=== PATIENT | female | born 1970 | race Caucasian/White ===

== ENCOUNTER → 2020-03-06 17:11 | Outpatient (CLI) | payer OTHER, SELFPAY ==
--- NOTE | ~2020-03-06 | MM_ITS ---
EXAMINATION: MM screening [facility] BI w constance HISTORY: Screening mammogram TECHNIQUE: Craniocaudal and mediolateral oblique 3-D tomosynthesis images were obtained and synthetic 2-D images were generated. CAD analysis was submitted and interpreted. COMPARISON: 02/06/2019, 12/27/2017, 12/18/2015 BREAST PARENCHYMAL COMPOSITION: There are scattered areas of fibroglandular density. FINDINGS: Scattered benign-appearing calcifications are present. There is no evidence of suspicious m ass, calcification, or architectural distortion to suggest malignancy in either breast. There has bee n no suspicious interval change. IMPRESSION: 1. No mammographic evidence of malignancy. 2. Recommend routine screening mammography in one year. BI-RADS Category 2: Benign finding(s). Reviewed, dictated and finalized at location A. S CENTER MANAGER
== END ==
PROVIDERS: PCP Internal Medicine; Visit Provider Nurse Practitioner
DX: Z12.31 Encounter for screening mammogram for malignant neoplasm of breast (principal)
CPT/HCPCS: 77063; 77067

== ENCOUNTER → 2020-03-24 13:33 | Outpatient (CLI) | payer OTHER, SELFPAY ==
--- NOTE | ~2020-03-24 | MR_ITS ---
EXAMINATION: MR cervical spine wo con DATE: 03/24/2020 14:47 INDICATION: Neck pain. TECHNIQUE: Magnetic resonance imaging (MRI) of the cervical spine was performed without intravenous c ontrast. Sequences included sagittal T2-weighted FSE, sagittal STIR FSE, sagittal T1-weighted FSE, ax ial MERGE, and axial T2-weighted FSE. COMPARISON: None FINDINGS: There is 2 mm retrolisthesis of C5 on C6. Vertebral body heights are normal. There is mildl y decreased disc height at C4-C5 and moderately decreased disc height at C5-C6. The spinal cord signa l intensity is normal. The following disc levels are specifically discussed: C2-C3: The disc does not extend beyond the endplate margin. There is no uncovertebral joint osteoarth ritis. There is severe bilateral facet joint osteoarthritis. There is no neural foraminal stenosis. T here is no central canal stenosis. C3-C4: There is a central protrusion. There is no uncovertebral joint osteoarthritis. There is severe bilateral facet joint osteoarthritis. There is mild left neural foraminal stenosis. There is no cent ral canal stenosis. C4-C5: There is a central protrusion. There is no uncovertebral joint osteoarthritis. There is mild l eft facet joint osteoarthritis. There is no neural foraminal stenosis. There is mild central canal st enosis. C5-C6: The disc is bulging. There is severe bilateral uncovertebral joint osteoarthritis. There is no facet joint osteoarthritis. There is mild bilateral neural foraminal stenosis. There is mild central canal stenosis with ventral indentation of the spinal cord. C6-C7: There is a central protrusion. There is no uncovertebral joint osteoarthritis. There is modera te bilateral facet joint osteoarthritis. There is no neural foraminal stenosis. There is no central c anal stenosis. C7-T1: The disc does not extend beyond the endplate margin. There is no uncovertebral joint osteoarth ritis. There is severe bilateral facet joint osteoarthritis. There is mild bilateral neural foraminal stenosis. There is no central canal stenosis. IMPRESSION: 1. Moderate cervical spondylosis. Reviewed, dictated and finalized at location A. NSTITCH SEWING MACHINE OPERATOR
== END ==
PROVIDERS: PCP Internal Medicine; Visit Provider Internal Medicine
DX: M47.892 Other spondylosis, cervical region (principal)
CPT/HCPCS: 72141

== ENCOUNTER → 2021-02-26 10:40 | Outpatient (CLI) | payer OTHER, SELFPAY ==
--- NOTE | ~2021-02-26 | US_ITS ---
EXAMINATION: US transvaginal EXAM DATE: 02/26/2021 11:04 INDICATION: Pelvic bloating. TECHNIQUE: Pelvic transvaginal sonogram was performed. There are multiple grayscale and Doppler imag es available for interpretation. There is no prior study for comparison. FINDINGS: Uterus measures 6.8 x 4.1 x 4.6 cm, and is morphologically normal. Endometrial stripe luis armando sures 3 mm, within normal limits. There is no free pelvic fluid. Right adnexa: The ovary measures 1.3 x 1.3 x 1.3 cm and is morphologically normal. Ovarian vascular f low confirmed. Left adnexa: The ovary measures 2.1 x 1.8 x 1.7 cm and is morphologically normal. Ovarian vascular fl ow confirmed. IMPRESSION: Unremarkable pelvic ultrasound exam. Reviewed, dictated and finalized at location A.
== END ==
PROVIDERS: Visit Provider Nurse Practitioner
DX: R14.0 Abdominal distension (gaseous) (principal)
CPT/HCPCS: 76830

== ENCOUNTER → 2021-03-12 12:18 | Outpatient (CLI) | payer OTHER, SELFPAY ==
--- NOTE | ~2021-03-12 | MM_ITS ---
EXAMINATION: MM screening [facility] BI w constance HISTORY: Screening mammogram TECHNIQUE: Craniocaudal and mediolateral oblique 3-D tomosynthesis images were obtained and synthetic 2-D images were generated. CAD analysis was submitted and interpreted. COMPARISON: 03/06/2020, 02/06/2019 BREAST PARENCHYMAL COMPOSITION: There are scattered areas of fibroglandular density. FINDINGS: There is no evidence of suspicious mass, calcification, or architectural distortion to sugg est malignancy in either breast. There has been no suspicious interval change. IMPRESSION: 1. No mammographic evidence of malignancy. 2. Recommend routine screening mammography in one year. BI-RADS Category 1: Negative Reviewed, dictated and finalized at location A. MANAGER/ESTHETICIAN
== END ==
PROVIDERS: PCP Internal Medicine; Visit Provider Nurse Practitioner
DX: Z12.31 Encounter for screening mammogram for malignant neoplasm of breast (principal)
CPT/HCPCS: 77063; 77067

== ENCOUNTER → 2021-04-16 07:40 | Outpatient (CLI) | payer OTHER, SELFPAY ==
--- NOTE | ~2021-04-16 | MR_ITS ---
EXAMINATION: MR shoulder RT wo con DATE: 04/16/2021 09:03 INDICATION: Right shoulder pain TECHNIQUE: Magnetic resonance imaging (MRI) of the right shoulder was performed without intravenous c ontrast. Sequences included axial PD-weighted FS FSE, coronal oblique PD-weighted FS FSE, coronal obl ique T2-weighted FS FSE, sagittal PD-weighted FS FSE, and sagittal T1-weighted SE. COMPARISON: None. FINDINGS: Coracoacromial arch: The acromion undersurface is curved in morphology (type II). The coracoacromial ligament is normal. A cromioclavicular joint is normal. Rotator cuff: Mild supraspinatus tendinopathy without discrete tear. The infraspinatus, teres minor and subscapular is tendons are normal. Normal rotator cuff muscle bulk and signal. Biceps tendon, glenoid labrum and glenohumeral cartilage: Long head of the biceps tendon is normal. Glenoid labrum is normal. Glenohumeral cartilage is normal. Fluid: Small amount of fluid in the long head biceps tendon sheath which is disproportionate to the physiolo gic amount fluid in the glenohumeral joint space consistent with mild bicipital tenosynovitis.No loos e osteochondral bodies. No abnormal fluid signal at the subacromial/subdeltoid bursa to suggest bursi tis. Bones: Normal marrow signal with no edema, fracture or abnormal marrow replacing process. IMPRESSION: 1. Mild supraspinatus tendinopathy without discrete tear. 2. Mild bicipital tenosynovitis. Reviewed, dictated and finalized at location . D AGENT
--- NOTE | ~2021-04-16 | MR_ITS ---
EXAMINATION: MR lumbar spine wo con DATE: 04/16/2021 09:08 INDICATION: Spinal stenosis TECHNIQUE: Magnetic resonance imaging (MRI) of the lumbar spine was performed without intravenous con trast. Sequences included sagittal T2-weighted FSE, sagittal T2-weighted FS FSE, sagittal T1-weighted FSE, and axial T2-weighted FSE. COMPARISON: CT dated 06/18/2015 FINDINGS: Chronic bilateral L5 pars interarticularis defects with 6 mm anterolisthesis L5 on S1. 3 mm retrolist hesis L4 on L5. Vertebral body heights are normal. Normal marrow signal. Severe disc height loss at L5-S1. Mild disc height loss at L1-L2. Disc desiccation without significant disc height loss at L4-L5 . The conus medullaris terminates at L1. There is normal signal in the caudal spinal cord. Paraverteb ral soft tissues are unremarkable. The following disc levels are specifically discussed: T12-L1: The disc does not extend beyond the endplate margin. There is mild bilateral facet joint oste oarthritis. There is no neural foraminal stenosis. There is no central canal stenosis. L1-L2: Disc is bulging. There is mild right and minimal left facet joint osteoarthritis. There is mil d left neural foraminal stenosis. There is mild central canal stenosis. L2-L3: The disc does not extend beyond the endplate margin. There is mild right and minimal left face t joint osteoarthritis. There is no neural foraminal stenosis. There is no central canal stenosis. L3-L4: Disc is minimally bulging. There is mild left and minimal right facet joint osteoarthritis. Th ere is no neural foraminal stenosis. There is no central canal stenosis. L4-L5: Disc is mildly bulging with annular fissure and small central disc extrusion with disc materia l extending 3 mm caudal to the level of the superior endplate of L5. There is mild left and moderate right facet joint osteoarthritis. There is mild bilateral neural foraminal stenosis. There is no cent ral canal stenosis. L5-S1: Disc is bulging. Bilateral L5 pars interarticularis defects. There is mild bilateral facet sue nt osteoarthritis. There is mild to moderate bilateral neural foraminal stenosis. There is no central canal stenosis. IMPRESSION: 1. Severe lumbosacral spondylosis with chronic bilateral L5 pars intra-articular is defects and 6 mm anterolisthesis on S1. 2. Minimal to mild spondylosis in the more cephalad lumbar spine. Reviewed, dictated and finalized at location H. OW WARE MAKER IMPRESSION: 1. Severe lumbosacral spondylosis with chronic bilateral L5 pars intra-articula r is defects and 6 mm anterolisthesis on S1. 2. Minimal to mild spondylosis in the more cephalad lumbar spine.
== END ==
PROVIDERS: PCP Internal Medicine; Visit Provider Physician Assistant Medical
DX: M48.00 Spinal stenosis, site unspecified (principal); M75.21 Bicipital tendinitis, right shoulder; M47.896 Other spondylosis, lumbar region
CPT/HCPCS: 72148; 73221

== ENCOUNTER → 2022-03-16 16:35 | Outpatient (CLI) | payer OTHER, SELFPAY ==
--- NOTE | ~2022-03-16 | MM_ITS ---
EXAMINATION: MM screening [facility] BI w constance HISTORY: Screening mammogram TECHNIQUE: Craniocaudal and mediolateral oblique 3-D tomosynthesis images were obtained and synthetic 2-D images were generated. CAD analysis was submitted and interpreted. COMPARISON: 03/12/2021, 03/06/2020, 02/06/2019 bilateral screening mammogram examinations BREAST PARENCHYMAL COMPOSITION: There are scattered areas of fibroglandular density. FINDINGS: There are 2 biopsy markers on the right; history of prior benign breast biopsies. There is associated mild stable fibroglandular asymmetry. There is no evidence of suspicious mass, calcificati on, or architectural distortion to suggest malignancy in either breast. There has been no suspicious interval change. IMPRESSION: 1. No mammographic evidence of malignancy. 2. Recommend routine screening mammography in one year. BI-RADS Category 2: Benign finding(s)... Reviewed, dictated and finalized at location A. ES 7 8 TUTOR
== END ==
PROVIDERS: PCP Physician Assistant Medical; Visit Provider Nurse Practitioner
DX: Z12.31 Encounter for screening mammogram for malignant neoplasm of breast (principal)
CPT/HCPCS: 77063; 77067

== ENCOUNTER 2022-12-22 12:29 | Outpatient (CLI) | payer OTHER, SELFPAY ==
--- NOTE | 2022-12-22 12:38 | ECG_ITS ---
Measurements Intervals [place] Rate: 61 P: -6 KS: 156 QRS: 3 QRSD: 80 T: 17 QT: 377 QTc: 382 Interpretive Statements SINUS RHYTHM ANTEROSEPTAL MYOCARDIAL INFARCTION [40+ ms Q WAVE IN V1-V4], PROBABLY OLD NONSPECIFIC T-WAVE ABNORMALITY ABNORMAL ECG NO PREVIOUS ECG AVAILABLE FOR COMPARISON Electronically Signed On 12-22-2022 14:02:09 CDT by Edgardo Wick M.D.
== END 2022-12-22 12:30 | disposition home or self-care (01) ==
LOC: ANHSURGERY 12:33
PROVIDERS: PCP Physician Assistant Medical; Visit Provider Surgery Plastic and Reconstructive Surgery
DX: I10 Essential (primary) hypertension (principal); Z01.818 Encounter for other preprocedural examination; Z41.1 Encounter for cosmetic surgery; R94.31 Abnormal electrocardiogram [ECG] [EKG]
CPT/HCPCS: 93005

== ENCOUNTER 2022-12-30 02:26 | Day surgery (SDC) | payer OTHER, SELFPAY ==
[2022-12-21 14:54] VITALS: BMI 33.2
--- NOTE | 2022-12-21 15:02 | PC.NURSE ---
Report to the Outpatient Waiting Room, entrance under the green pavilion located off [facility], at time 6:00 on date 12/30/22. Planned Procedure Time: 7:30. Time changes happen often and if your time is changed the preop area will call you the afternoon before. - You and your visitor will be asked to self-screen and do not enter if you have any COVID symptoms. - A mask is optional within the hospital at this time. Patients may have clear liquids (water, carbonated beverages, clear teas, apple juice) until 3 hours prior to surgery with a maximum of 20 ounces. - No food from midnight until time of surgery Take the following medications with a SIP of water the morning of surgery: LEVOTHYROXINE, METOPROLOL DO NOT STOP ANY OF YOUR OTHER PRESCRIPTION MEDICATIONS PRIOR TO SURGERY ?EXCEPT THE FOLLOWING Medications to discontinue per physician: VITAMINS/SUPPLEMENTS Date to take last dose: 12/26/22 Please no make-up, nail divehi, hairspray, perfume, deodorant, or body powder the day of surgery. No jewelry (including any body piercings) or valuables the day of surgery, leave them at home. Please take a shower or bath the night before, or the morning of, surgery with an antibacterial soap. Wear comfortable, loose fitting clothing. - Jewelry must be removed prior to entering the operating room. Rings and piercings that are not removed may be cut off. - The hospital will not accept responsibility for valuables. - Please leave all valuables, including medications, at home the day of surgery. If you are going home after surgery, a licensed tow motor driver must drive you home. - NO public transportation without another adult if you receive anesthesia. - We recommend that an adult stay with you for 24 hours following discharge. - We also recommend that you do not drive, make important decision, drink alcoholic beverages, or take any drugs that were not prescribed by your health care provider for at least 24 hours after your discharge time. Follow any additional instructions given to you from your surgeon. If you or anyone in your household have experienced Covid symptoms in the past week, please notify your surgeon or the nurse liaison at the phone number below for possible testing. Telephone instructions given to PT - KRZYSZTOF BRANCH and asked if any additional questions and then verbalized understanding. Patient advised to call surgeon office or pre surgery nurse liaison [phone] if any additional questions.
[2022-12-30] VITALS (10 sets, daily range): BP systolic 109–153; BP diastolic 65–97; PULSE 73–121; RESP 12–24; TEMP 36.3–37.1; O2SAT 93–100
[2022-12-30 06:34] LABS: Urine Cotinine NEGATIVE
[2022-12-30] MEDS: LACTATED RINGERS 1,000 ML 30 ML IV CONT ×2 (06:40→12:35)
--- NOTE | 2022-12-30 06:40 | W.PM.PROC2 ---
Procedure Note - Detailed Date of Procedure 12/30/22 Pre-op Diagnosis skin laxity Post-op Diagnosis Same Procedure Performed Michelle abdominoplasty with suction lipectomy Surgeon Tad Landry MD Anesthesia General Findings Lipoaspirate: 3,250 cc Tissue removed: 5,302 grams Description of Procedure They are here today for the above procedures. Previously and again today the risks, benefits, alternatives were discussed in extensive detail. I wanted them to be very realistic about the risks involved as well as expectations. We discussed aftercare and what to monitor for. I was very upfront about the risks of wound breakdown leading to loss of skin, open wounds, and need for additional procedures with permanent abdominal deformity. We discussed DVT/PE risks and management. Made sure answered all of their questions to their satisfaction today and consent was obtained. They were marked in the preoperative holding area with their verification. The patient was taken to the operating room. Anesthesia was provided by anesthesiology. A Hinkle catheter was started. Placed prone on the operating room table with care taken to protect from injury. Prepped and draped in a standard sterile fashion. A surgical time-out was taken. Stab incisions were made and tumescent solution was infiltrated. Once adequate time was allowed for hemostasis a 5mm basket and 3mm multi hole cannula were utilized to complete suction lipectomy based on S.A.F.E. technique in multiple planes and passes. Suction lipectomy continued to result based on pre-operative planning, intra-operative observation, and rolling pinch test which were in full agreement. Patient was then placed supine with care taken to protect from injury. I placed the patient in a flexed position to verify the upper and lower markings would reach. I then placed supine. A thorough abdominal examination was completed. Stab incisions were made and tumescent solution infiltrated. Stab incisions were made and tumescent solution was infiltrated. Once adequate time was allowed for hemostasis a 5mm basket and 3mm multi hole cannula were utilized to complete suction lipectomy based on S.A.F.E. technique in multiple planes and passes. Suction lipectomy continued to result based on pre-operative planning, intra-operative observation, and rolling pinch test which were in full agreement. A 10 blade was used to make the vertical and upper incision. I continued dissection down to the level of fascia. Elevated just what was necessary for repair of the diastasis. I then again flexed the bed to verify the upper skin flap would reach the lower markings without tension. Once verified I placed her supine once again and a 10 blade used to make the lower incision. I elevated up to level the umbilicus and left the umbilicus intact on a well-vascularized stalk. The intervening tissue was removed. A 2 mm blunt cannula with 0.5% bupivicaine was injected deep to the fascia bilaterally. I plicated the diastasis recti using 0 PDO stratafix barbed suture. This was in 2 separate layers using 2 separate sutures as well. I repaired around the umbilicus leaving plenty of room for well-vascularized stalk of the umbilicus with 2-0 PDS. I also repaired lateral to the rectus using two layers of 0 PDO stratafix. The patient was flexed and starting from superior to inferior began plication using 2-0 Vicryl to obliterate all space in a standard progressive tension fashion. At the umbilicus I marked out the location of the skin and inset this with 3-0 Monocryl and 4-0 Vicryl. I continued the remainder of the plication using 2-0 Vicryl until I reached my lower planned scar line. I trimmed any excess skin of the upper flap making sure this was a tension-free closure. A 15 Hernando drain was placed. I then approximated using a 3 point suture with 2-0 Vicryl followed by 3-0 stratafix ,running subcuticular 4-0 Monocryl, an
[2022-12-30 06:51] LABS: Hemoglobin 13.6 g/dL (12.0-15.0)
--- NOTE | 2022-12-30 06:52 | WPDHPUPDATE1 ---
History and Physical Update Update Date/Time: 12/30/22 06:52 History and Physical has been reviewed, including an updated exam of the patient. There are NO changes in the patient's condition. Risks, benefits, and alternatives have been discussed and questions answered. Patient agrees to proceed with procedure.
[2022-12-30] MEDS: SCOPOLAMINE 1.5 MG PATCH TRANSDERM (06:53)
--- NOTE | 2022-12-30 07:11 | WPDANESEPPF ---
Anes - Initial Pre Proc Eval Procedure: Operation Date: 12/30/22 07:30 Proposed Procedures p Chyna Nguyen Abdominoplasty with Liposuction to Abdomen - Tad Landry MD Date/Time: 12/30/22 07:11 Surgeon: Tad Landry MD Pre Op Diagnosis: skin laxity Patient Data Age: 52 Gender: F Height: 1.52 m Weight: 77.05 kg Last Vital Signs Temp 97.4 F L 12/30/22 07:09 Pulse 73 12/30/22 07:09 Resp 16 12/30/22 07:09 BP 144/97 H 12/30/22 07:09 Pulse Ox 100 12/30/22 07:09 O2 Del Method Room Air 12/30/22 07:09 Allergies Allergy/AdvReac Type Severity Reaction Status Date / Time adhesive Allergy Intermediate RASH,ITCHIN Verified 12/30/22 06:11 G cetirizine [From [facility]] Allergy Unknown Headache Verified 12/30/22 06:11 Home Medications Medication Instructions Recorded Confirmed Type lisinopril 10 mg tablet 10 mg PO DAILY #90 tabs 07/05/22 12/30/22 Rx levothyroxine 125 mcg tablet See Rx Instructions .Route 08/09/22 12/30/22 Rx .COMPLEX #90 tabs famotidine 20 mg tablet See Rx Instructions .Route 08/10/22 12/30/22 Rx .COMPLEX #90 tabs metoprolol tartrate 25 mg tablet 25 mg PO BID #180 tabs 12/13/22 12/30/22 Rx fexofenadine 60 mg-pseudoephedrine 1 tablet PO DAILY PRN Allergy 12/21/22 12/30/22 History ER 120 mg tablet,ext.release,12 hr Symptoms (Lien-D 12 Hour) multivitamin 1 tablet PO DAILY 12/21/22 12/30/22 History Laboratory Tests 12/30/22 12/30/22 06:15 06:39 Hgb 13.6 g/dL (12.0-15.0) Hct 41.0 % (37.0-47.0) Cotinine Negative Patient hx anesthesia problems: post op nausea/vomiting Family hx anesthesia problems: none Results Review: All pre-operative results and documents have been reviewed as part of the pre-operative evaluation. [facility] Past Medical History Medical History (Updated 07/23/22 @ 12:08 by Adela Mckay PA-C) Abnormal laboratory test Acquired hypothyroidism Acute pain of right knee Acute sinusitis Adult general medical exam Allergic rhinitis Body mass index [BMI] 31.0-31.9, adult (10/21/16) Body mass index [BMI] 33.0-33.9, adult (12/03/16) Body mass index [BMI] 34.0-34.9, adult (03/24/17) Chest congestion Chondromalacia of both patellae Chondromalacia patellae, left knee Depression Dietary counseling and surveillance (03/24/17) Diverticulitis of large intestine without perforation or abscess Elevated liver enzymes Encounter for other specified surgical aftercare Essential hypertension Fatigue Hepatic steatosis Hyperglycemia Insect bite Left knee pain Lower abdominal pain Other specified hypothyroidism Positive CHANDNI (antinuclear antibody) Thyroid nodule URI (upper respiratory infection) Vertigo Vitamin B12 deficiency Vitamin D deficiency Family History Family History Father Hypertension Cerebrovascular accident Family history of diabetes mellitus in first degree relative Sibling Hypertension Family history of diabetes mellitus in first degree relative Mother Family history of malignant neoplasm of stomach Other Diabetes mellitus Family history of anemia Family history of cardiovascular disease Family history of malignant neoplasm Family history of thyroid disease Social History Social History Smoking status: Never smoker Alcohol intake: current Drinks per week: 4 Alcohol use details: occasional Substance use: never Substance use type: does not use Living arrangements: with family Occupation/Education: unemployed Gender identity (if verbalized by the patient): Female Sexual Orientation (if Verbalized by the Patient): Straight or Heterosexual Spiritual care concerns: No Anes - Eval Final PreProcedure Day of Procedure 12/30/22 07:11 Patient weight: normal Heart: regular rate and rhythm Lungs: clear to auscultation Airway: Mallampati scal
[2022-12-30] MEDS: ceFAZolin 2 GM/D5W 50 ML 2 GM/50 ML BAG IVPB (07:25)
[2022-12-30] MEDS: LACTATED RINGERS IRRIG 1,000 ML, LIDOCAINE HCL 1% LOCAL INJ 50 ML, EPINEPHrine HCL INJ ... INFILTRATE (07:27)
[2022-12-30] MEDS: BUPIVACAINE/EPINEPHRINE 0.5% 50 ML VIAL 60 ML INFILTRATE (07:27)
[2022-12-30] MEDS: TRANEXAMIC ACID 1,000MG/ISO100 1,000 MG/100 ML BAG 200 MG IVPB (07:39)
[2022-12-30] MEDS: fentaNYL CITRATE INJ (*CRX) 100 MCG/2 ML VIAL 25 MCG IV PUSH ×2 (13:00→13:10)
[2022-12-30] MEDS: METOPROLOL TARTRATE INJ 5 MG/5 ML VIAL IV PUSH (13:31)
--- NOTE | 2022-12-30 13:50 | PC.NURSE ---
Patient transferred to post room #[id number] ( stretcher). Support person present. Oriented to unit, room, information board, rooming in, admission packet and security measures. Patient verbalizes understanding.
[2022-12-30] MEDS: MORPHINE SULFATE (*CRX) 2 MG/ML INJ IV PUSH ×3 (14:01→21:42)
[2022-12-30] MEDS: LACTATED RINGERS 1,000 ML 125 ML IV CONT ×2 (14:02→22:00)
[2022-12-30] MEDS: oxyCODONE/ACETAMINOPHEN (*CRX) 5-325 MG TABLET PO (15:03)
[2022-12-30] MEDS: KETOROLAC 10 MG TABLET PO ×2 (17:10→23:11)
[2022-12-30] MEDS: carisoprodoL (*CRX) 350 MG TABLET PO ×2 (17:11→23:12)
[2022-12-30] MEDS: ENOXAPARIN 40 MG/0.4 ML SYRINGE SUB-Q (21:33)
[2022-12-30] MEDS: DOCUSATE SODIUM 100 MG CAPSULE PO (21:34)
[2022-12-31] MEDS: oxyCODONE/ACETAMINOPHEN (*CRX) 5-325 MG TABLET PO ×3 (01:22→14:17)
[2022-12-31 01:30] VITALS: BP 114/84; PULSE 112; RESP 14; TEMP 37.3; O2SAT 99
--- NOTE | 2022-12-31 07:20 | PC.NURSE ---
PT introductions made and plan of care discussed per post op plastic surgery, pain management, daily care activities and pending discharge to home. PT and spouse both recipients of such instructions and no barriers to learning identified at this time. PT received such instructions per one to one discussion, and demonstrations this shift. PT verbalized understanding of such care.
--- NOTE | 2022-12-31 07:37 | WPDPN ---
Progress Note: A&P Assessment and Plan (1) Skin laxity: Code(s): L57.4 - Cutis laxa senilis Status: Acute Assessment and Plan: Doing well after gcnij-st-wct abdominoplasty with suction lipectomy. Will discharge home. Today we had a lengthy discussion about the care. Activity limitations. What to monitor for. What is an emergency and when to dial 911 / proceed to the ER. This was a lengthy open ended conversation making sure they were well informed. Answered all their questions. They voiced a clear understanding. Will discharge home. Call with any questions or concerns in the meantime. (2) Localized adiposity: Code(s): E65 - Localized adiposity Status: Acute Subjective Date/time seen: 12/31/22 07:37 Interval history: Doing well after progressive tension [id number] abdominoplasty with suction lipectomy. Some ambulation. Pain controlled. No nausea / vomiting. No fevers / chills. No shortness of breast. No chest pain. No calf tenderness. Review of Systems Review of Systems: All systems reviewed & are unremarkable except as noted in HPI and below Exam Narrative: Alert & Oriented NOD Respiratory unlabored Abdomen is healing well. No signs of infection. No hematoma. No seroma. Good color and capillary refill. Drain removed. No calf tenderness. Negative Lakisha's Objective Data Vital Signs Vital Signs: Vital Signs - 24 hr 12/30/22 12:35 12/30/22 12:50 12/30/22 13:05 Temperature 37.1 C Pulse Rate 110 H 121 H 112 H Respiratory Rate 24 H 18 16 Blood Pressure 122/66 153/90 H 147/87 H Pulse Oximetry 99 99 93 Oxygen Delivery Simple Face Mask Simple Face Mask Room Air Oxygen Flow Rate 8 8 12/30/22 13:31 12/30/22 13:20 12/30/22 13:35 Temperature Pulse Rate 120 H 116 H 97 Respiratory Rate 12 12 Blood Pressure 151/93 H 143/88 H Pulse Oximetry 94 93 Oxygen Delivery Room Air Room Air Oxygen Flow Rate 12/30/22 14:25 12/30/22 14:25 12/30/22 17:19 Temperature 36.3 C L Pulse Rate 98 Respiratory Rate 16 Blood Pressure 145/90 H Pulse Oximetry 98 Oxygen Delivery Room Air Room Air Oxygen Flow Rate 12/30/22 17:19 12/30/22 21:00 12/30/22 21:00 Temperature 37.0 C Pulse Rate 86 91 91 Respiratory Rate 18 16 16 Blood Pressure 129/72 109/65 Pulse Oximetry 100 96 96 Oxygen Delivery Room Air Oxygen Flow Rate 12/31/22 01:30 12/31/22 01:30 Temperature 37.3 C Pulse Rate 112 H 112 H Respiratory Rate 14 14 Blood Pressure 114/84 Pulse Oximetry 99 99 Oxygen Delivery Room Air Oxygen Flow Rate Intake/Output Intake/Output: Intake & Output 12/28/22 12/29/22 12/30/22 12/31/22 23:59 23:59 23:59 23:59 Intake Total 2550 Output Total 2260 725 Balance 290 -725 Meds/Results Medications: Active Medications Generic Name Dose Route Start Last Admin Trade Name Freq PRN Reason Stop Dose Admin Carisoprodol 350 mg 12/30/22 18:00 12/30/22 23:12 Carisoprodol (*Crx) 350 Mg Tablet PO 350 mg Q6HR LONG Administration Diazepam 5 mg 12/30/22 12:26 Diazepam (*Crx) 5 Mg Tablet PO TID PRN Anxiety Docusate Sodium 100 mg 12/30/22 21:00 12/30/22 21:34 Docusate Sodium 100 Mg Capsule PO 100 mg Q12HR LONG Administration Enoxaparin Sodium 40 mg 12/30/22 19:00 12/30/22 21:33 Enoxaparin 40 Mg/0.4 Ml Syringe SUB-Q 40 mg DAILY LONG Administration Famotidine 20 mg 12/31/22 09:00 Famotidine 20 Mg Tablet BY MOUTH DAILY LONG Lactated Ringer's 1,000 mls @ 125 mls/hr 12/30/22 12:30 12/30/22 22:00 Lr - Lactated Ringers Iv IV CONT 125 mls/hr .Q8H LONG Administration Ketorolac Tromethamine 10 mg 12/30/22 18:00 12/30/22 23:11 Ketorolac 10 Mg Tablet PO 01/01/23 12:01 10 mg Q6HR LONG Administration Levothyroxine Sodium 125 mcg 12/31/22 06:30 Levothyroxine Sodium 125 Mcg Tablet BY MOUTH DAILY@0630 LONG Lisinopril 10 mg 12/31/22 09:00 Lisinop
--- NOTE | 2022-12-31 07:40 | PM.DS ---
DS: Admitting Diagnosis Discharge Date 12/31/2022 Admitting Diagnosis 1. Skin laxity 2. Localized adiposity DS: Discharge Diagnosis Discharge Diagnosis (1) Skin laxity: Code(s): L57.4 - Cutis laxa senilis Status: Acute (2) Localized adiposity: Code(s): E65 - Localized adiposity Status: Acute DS: Summary Hospital Course Hospital Course: She underwent [id number] abdominoplasty with suction lipectomy. Postoperatively has done well. Will discharge home. Time Spent with Patient Time attestation: Total time spent providing and/or coordinating discharge services: Exam Narrative: Alert & Oriented NOD Respiratory unlabored Abdomen is healing well. No signs of infection. No hematoma. No seroma. Good color and capillary refill. Drain removed. No calf tenderness. Negative Lakisha's Discharge Plan Discharge Patient Disposition: Home, Self-Care Discharge Instructions: POST OPERATIVE DISCHARGE INSTRUCTIONS TAD LANDRY M.D. [facility] PLASTIC SURGERY [facility] [facility] [address] [place] [address] [address] for 24 hours after anesthesia and while you are taking pain medication. Take all prescribed medication as directed Diet as tolerated. No lifting or activity that raises blood pressure for 48 hours. Regular walking / ambulation. May shower 24 hours after surgery. Once you shower do not take pain medication before showering as the combination of medication and heat may cause you to feel dizzy or pass out. No pools or tubs for 2 weeks. Slowly stand up straight as tolerated. No straining or lifting more than 20 pounds. If no bowel movement within 24 hours may use laxative. Call with any questions or concerns. Dressing Care: Continue abdominal binder / foam 23 hours per day. If you have any questions or concerns, please call the office . If it is after hours you will be directed to the operations administrative assistant exchange. Shortness of breath, chest pain, or other medical emergency dial 911 / proceed to the Emergency Room. Stand Alone Forms: General Discharge Instructions Follow-up/Referrals: Tad Landry MD [Physician] - 1 Week Discharge Medications: Continued multivitamin Tablet 1 tablet PO DAILY fexofenadine-pseudoephedrine [Lien-D 12 Hour] 60-120 mg Tablet Extended Release 12 Hr 1 tablet PO DAILY PRN (Reason: Allergy Symptoms) lisinopril 10 mg tablet 10 mg PO DAILY Qty: 90 1RF levothyroxine 125 mcg tablet See Rx Instructions .ROUTE .COMPLEX Qty: 90 1RF Dose Instruction: TAKE 1 TABLET DAILY Rx Instructions: TAKE 1 TABLET DAILY famotidine 20 mg tablet See Rx Instructions .ROUTE .COMPLEX Qty: 90 1RF Dose Instruction: TAKE 1 TABLET DAILY Rx Instructions: TAKE 1 TABLET DAILY metoprolol tartrate 25 mg tablet 25 mg PO BID Qty: 180 0RF
[2022-12-31] MEDS: KETOROLAC 10 MG TABLET PO ×2 (07:45→13:39)
[2022-12-31] MEDS: LEVOTHYROXINE SODIUM 125 MCG TABLET BY MOUTH (07:45)
[2022-12-31] MEDS: carisoprodoL (*CRX) 350 MG TABLET PO ×2 (07:45→13:40)
[2022-12-31 08:25] VITALS: BP 112/69; PULSE 97; RESP 18; TEMP 37.2; O2SAT 98
[2022-12-31] MEDS: FAMOTIDINE 20 MG TABLET BY MOUTH (08:27)
[2022-12-31] MEDS: lisinopriL 10 MG TABLET PO (08:27)
[2022-12-31] MEDS: DOCUSATE SODIUM 100 MG CAPSULE PO (08:27)
[2022-12-31] MEDS: ENOXAPARIN 40 MG/0.4 ML SYRINGE SUB-Q (08:30)
--- NOTE | 2022-12-31 08:52 | WPDANESPN ---
Anes - Prog Note Post-Op Date/Time: 12/31/22 08:52 Cardiovascular status: normal Respiratory status: normal Airway patency: baseline Mental status: baseline Post-Op hydration status: normal Vital Signs: Last Vital Signs Temp 37.3 C 12/31/22 01:30 Pulse 112 H 12/31/22 01:30 Resp 14 12/31/22 01:30 BP 114/84 12/31/22 01:30 Pulse Ox 99 12/31/22 01:30 O2 Del Method Room Air 12/31/22 01:30 O2 Flow Rate 8 12/30/22 12:50 Pain Score (VAS): 2/10 I/O: Intake & Output 12/30/22 12/31/22 12/31/22 23:59 07:59 15:59 Intake Total 1500 Output Total 1960 725 Balance -460 -725 Laboratory Tests 12/30/22 06:39 Post-procedural complaints: none Patient Feedback: Patient satisfied with anesthetic care.
--- NOTE | 2022-12-31 14:15 | PC.NURSE ---
PT received discharge instructions per protocol and verbalized understanding of such care.
--- NOTE | 2022-12-31 14:35 | PC.NURSE ---
PT discharged to home via wheelchair accompanied by spouse and taken to waiting car. Follow up appts confirmed
== END 2022-12-31 14:35 | disposition home or self-care (01) ==
LOC: ANHSURGERY 06:52 → ANHOB2 13:48
PROVIDERS: Anesthesiology; PCP Physician Assistant Medical; Visit Provider Surgery Plastic and Reconstructive Surgery
PROC: (CPT 15830; principal; 2022-12-30 07:30)
DX: Z41.1 Encounter for cosmetic surgery (principal); L57.4 Cutis laxa senilis; E65 Localized adiposity; I10 Essential (primary) hypertension; E03.8 Other specified hypothyroidism; Z79.899 Other long term (current) drug therapy
CPT/HCPCS: 15830; 15847; 15877; 80307; 85014; 85018; 99199; A9270; J0171; J0690; J1100; J1170; J1650; J2250; J2270; J2405; J2704; J3010; J7120

== ENCOUNTER → 2023-05-04 15:13 | Outpatient (CLI) | payer OTHER, SELFPAY ==
--- NOTE | ~2023-05-04 | MM_ITS ---
EXAMINATION: MM screening [facility] BI w [facility]ance HISTORY: Screening mammogram TECHNIQUE: Craniocaudal and mediolateral oblique 3-D tomosynthesis images were obtained and synthetic 2-D images were generated. CAD analysis was submitted and interpreted. COMPARISON: 03/16/2022, 03/12/2021, 03/06/2020 BREAST PARENCHYMAL COMPOSITION: There are scattered areas of fibroglandular density. FINDINGS: No suspicious mass, calcification, or architectural distortion are identified in either cindy ast to suggest malignancy. There has been no suspicious interval change. IMPRESSION: 1. No mammographic evidence of malignancy. 2. Recommend routine screening mammography in one year. BI-RADS Category 1: Negative Reviewed, dictated and finalized at location A. CAL TECHNOLOGIST CLINICAL
== END ==
PROVIDERS: PCP Nurse Practitioner; Visit Provider Nurse Practitioner
DX: Z12.31 Encounter for screening mammogram for malignant neoplasm of breast (principal)
CPT/HCPCS: 77063; 77067

== ENCOUNTER 2024-01-04 14:44 | Outpatient (CLI) | payer OTHER, SELFPAY ==
--- NOTE | ~2024-01-04 | US_ITS ---
Pelvic ultrasound. Clinical History: Postmenopausal bleeding Technique: Realtime transvaginal scanning of the pelvis was performed. Color flow Doppler and Doppler spectral analysis were performed. Findings: The uterus is anteverted, and measures 6.1 x 3.3 x 3.6 cm. The endometrial stripe has a th ickness of 9 mm. No focal mass is identified. The right ovary measures 1.6 x 0.7 x 1.8 cm. No significant right ovarian or adnexal mass is seen. The left ovary measures 1.6 x 1.7 x 1.0 cm. No significant left ovarian or adnexal mass is seen. There is no evidence of free fluid in the cul de sac. Impression: Endometrial is mildly thickened for a postmenopausal woman. Diagnostic considerations include endomet rial hyperplasia versus endometrial neoplasm. Further evaluation, including endometrial biopsy, advis ed. Reviewed, dictated and finalized at [facility]. Impression: Endometrial is mildly thickened for a postmenopausal woman. Diagnostic consider ations include endometrial hyperplasia versus endometrial neoplasm. Further katiana luation, including endometrial biopsy, advised.
== END 2024-01-04 14:45 | disposition home or self-care (01) ==
LOC: MICIMG 14:44
PROVIDERS: PCP Obstetrics & Gynecology Gynecology; Visit Provider Obstetrics & Gynecology Gynecology
DX: N95.0 Postmenopausal bleeding (principal)
CPT/HCPCS: 76830

== ENCOUNTER 2024-01-16 02:15 | Day surgery (SDC) | payer OTHER, SELFPAY ==
[2024-01-10 14:10] VITALS: BMI 30.3
--- NOTE | 2024-01-10 14:15 | PC.NURSE ---
Report to the Outpatient Waiting Room, entrance under the green pavilion located off [facility], at time _0715_ on date _[id number]_. Planned Procedure Time: _09_.? Time changes happen often and if your time is changed the preop area will call you the afternoon before. - You and your visitor will be asked to self-screen and do not enter if you have any COVID symptoms. Please call surgeon if you need to reschedule. - A mask is optional within the hospital at this time. Patients may have clear liquids (water, carbonated beverages, clear teas, apple juice) until 3 hours prior to surgery with a maximum of 20 ounces. - No food from midnight until time of surgery and no smoking Take only the following medications with a SIP of water on the morning of surgery: ___Levothyroxine and Metoprolol DO NOT STOP ANY OF YOUR OTHER PRESCRIPTION MEDICATIONS PRIOR TO SURGERY EXCEPT THE FOLLOWING Medications to discontinue per physician All vitamins and supplements. Date to take last xpdf___[id number] Please no make-up, nail tanzanian, hairspray, perfume, deodorant, or body powder the day of surgery.? No jewelry (including any body piercings) or valuables the day of surgery, leave them at home.? Please take a shower or bath the night before, or the morning of, surgery with an antibacterial soap.? Wear comfortable, loose fitting clothing.? - Jewelry must be removed prior to entering the operating room.? Rings and piercings that are not removed may be cut off. - The hospital will not accept responsibility for valuables.? - Please leave all valuables, including medications, at home the day of surgery. If you are going home after surgery, a licensed bicycle taxi driver must drive you home.? - NO public transportation without another adult if you receive anesthesia. - We recommend that an adult stay with you for 24 hours following discharge. - We also recommend that you do not drive, make important decision, drink alcoholic beverages, or take any drugs that were not prescribed by your health care provider for at least 24 hours after your discharge time. Follow any additional instructions given to you from your surgeon. Telephone instructions given to __Denise___and asked if any additional questions and then verbalized understanding. Patient advised to call surgeon office or pre surgery nurse liaison [phone] if any additional questions.
--- NOTE | 2024-01-16 07:34 | WPDHPUPDATE1 ---
History and Physical Update Update Date/Time: 01/16/24 07:34 History and Physical has been reviewed, including an updated exam of the patient. There are NO changes in the patient's condition. Risks, benefits, and alternatives have been discussed and questions answered. Patient agrees to proceed with procedure.
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
[2024-01-16 08:00] VITALS: BP 178/76; PULSE 68; RESP 16; TEMP 36.2; O2SAT 98
[2024-01-16] MEDS: ACETAMINOPHEN 500 MG TABLET 1000 MG PO (08:05)
[2024-01-16] MEDS: LACTATED RINGERS 1,000 ML 30 ML IV CONT (08:30)
[2024-01-16 09:37] VITALS: BP 149/77; PULSE 62; RESP 14; O2SAT 95
--- NOTE | 2024-01-16 09:37 | P.OP_ITS ---
Procedure Note - Detailed Date of Procedure 01/16/24 Pre-op Diagnosis Post Menopausal Bleeding Post-op Diagnosis Same Procedure Performed D&C hysteroscopy Surgeon Anna Garcia MD Anesthesia MAC Findings cervix is stenotic uterus sounds to 6cm and is grossly atrophic Description of Procedure The patient is taken to the operating room and placed under anesthesia in dorsal lithotomy position. She was prepped and draped usual sterile fashion. [place] speculum was placed in the vagina and the cervix grasped on the anterior lip with a tenaculum. The uterus was attempted to be sounded but stenosis is encountered at 1cm. The Hegar dilators are used to enter the internal os and the cervix is serially dilated to a 5 Hegar. The hysteroscope was then able to be placed and with the above-stated findings it is removed. The sharp OO curette is used to curette the endometrium until a good uterine cry was noted in all areas. Minimal material was obtained consistent with the visual appearance. All instruments are removed. Sponge, needle, and instrument counts are correct per the OR staff. Patient was taken to recovery in stable condition. Estimated Blood Loss 5 Drains No Packing No Pathology Yes ( Endometrial curettings) Complications No immediate complications Condition Stable Disposition PACU
[2024-01-16] MEDS: oxyCODONE HCL (*CRX) 5 MG TAB IR PO (09:59)
[2024-01-16 10:00] VITALS: BP 166/68; PULSE 62; RESP 16
[2024-01-16 10:30] VITALS: BP 158/76; PULSE 52; RESP 16
[2024-01-16 10:50] VITALS: BP 155/75; PULSE 48; RESP 16
== END 2024-01-16 10:55 | disposition home or self-care (01) ==
PROVIDERS: PCP Physician Assistant Medical; Visit Provider Obstetrics & Gynecology Gynecology
PROC: 0U5B8ZZ Destruction of Endometrium, Via Natural or Artificial Opening Endoscopic (ICD-10-PCS; CPT 58563; principal; 2024-01-16 09:15)
DX: N85.8 Other specified noninflammatory disorders of uterus (principal); E03.9 Hypothyroidism, unspecified; I10 Essential (primary) hypertension; R73.9 Hyperglycemia, unspecified; J45.909 Unspecified asthma, uncomplicated; F32.A Depression, unspecified; E78.00 Pure hypercholesterolemia, unspecified; E53.8 Deficiency of other specified B group vitamins; E55.9 Vitamin D deficiency, unspecified; Z79.82 Long term (current) use of aspirin; Z98.890 Other specified postprocedural states; Z90.49 Acquired absence of other specified parts of digestive tract; Z80.0 Family history of malignant neoplasm of digestive organs; Z82.49 Family history of ischemic heart disease and other diseases of the circulatory system
CPT/HCPCS: 58558; 88305; A9270; J2704; J3010; J7120

== ENCOUNTER 2024-02-14 13:35 | Outpatient (CLI) | payer OTHER, SELFPAY ==
--- NOTE | ~2024-02-14 | CT_ITS ---
EXAMINATION: CT BRAIN W/O DATE: 02/14/2024 14:32 INDICATION: Headache TECHNIQUE: Computed tomography (CT) of the head was performed without and with 100 cc intravenous con trast. The dose-length product was 1199.14 mGy-cm. Automated exposure control and iterative reconstru ction technique were employed. COMPARISON: No prior studies for comparison. FINDINGS: Normal brain parenchymal volume for age. Normal aldana-white differentiation. No acute intrac ranial hemorrhage, infarction, mass or mass effect. No abnormal contrast enhancement. No ventriculomegaly or midline shift. Midline sagittal images demonstrate a normal corpus callosum, c raniovertebral junction and sella turcica. Basilar cisterns are patent. Paranasal sinuses and mastoids are pneumatized. No depressed skull fractures. IMPRESSION: 1. No acute intracranial abnormality. Reviewed, dictated and finalized at location B.
[2024-02-14 14:07] LABS: Estimated Glomerular Filt Rate > 60
== END 2024-02-14 13:36 | disposition home or self-care (01) ==
LOC: MICIMG 13:36
PROVIDERS: PCP Physician Assistant Medical; Visit Provider Physician Assistant Medical
DX: R51.9 Headache, unspecified (principal); S09.90XA Unspecified injury of head, initial encounter; X58.XXXA Exposure to other specified factors, initial encounter
CPT/HCPCS: 70470; Q9967

== ENCOUNTER 2024-06-18 12:45 | Outpatient (CLI) | payer OTHER, SELFPAY ==
--- NOTE | ~2024-06-18 | MM_ITS ---
EXAMINATION: MM screening [facility] BI w constance HISTORY: Screening mammogram TECHNIQUE: Craniocaudal and mediolateral oblique 3-D tomosynthesis images were obtained and synthetic 2-D images were generated. CAD analysis was submitted and interpreted. COMPARISON: 05/04/2023, 03/16/2022, 03/12/2021 BREAST PARENCHYMAL COMPOSITION:Not Dense. There are scattered areas of fibroglandular density. FINDINGS: No suspicious mass, calcification, or architectural distortion are identified in either cindy ast to suggest malignancy. There has been no suspicious interval change. IMPRESSION: No mammographic evidence of malignancy. Recommend routine screening mammography in one year. BI-RADS Category 1: Negative Reviewed, dictated and finalized at location . LBOARD OPERATOR
== END 2024-06-18 12:46 | disposition home or self-care (01) ==
LOC: MICIMG 12:47
PROVIDERS: PCP Physician Assistant Medical; Visit Provider Nurse Practitioner
DX: Z12.31 Encounter for screening mammogram for malignant neoplasm of breast (principal)
CPT/HCPCS: 77063; 77067

== ENCOUNTER 2025-01-28 11:36 | Outpatient (CLI) | payer OTHER, SELFPAY ==
--- NOTE | ~2025-01-28 | CT_ITS ---
CT abdomen pelvis w con Clinical History: left and lower abdominal pain, hernia, hx diverticulitis . Comparison: Report from CT 08/20/2014 Technique: Axial images lung bases to symphysis pubis IV contrast information: 100 mL Omnipaque 350 Coronal, sagittal reformats CT images acquired with automatic exposure control for dose reduction DLP: 393 mGy-cm Findings: Lung bases: Clear. Visualized heart and pericardium: Unremarkable. Liver: Unremarkable. Gallbladder: Unremarkable. Spleen: Unremarkable. Pancreas: Unremarkable. Adrenal glands: Unremarkable. Kidneys: Right kidney- No hydronephrosis. No renal stones. Left kidney- No hydronephrosis. No renal stones. Distal esophagus/stomach: Unremarkable. Small bowel loops: Normal caliber and wall thickness. Colon: Diverticula. Pericolonic wall thickening descending segment, no free air, no abscess. Normal RLQ appendix. Nodes: No enlarged nodes. Peritoneum: No ascites. No free air. Urinary bladder: Unremarkable. Uterus: Unremarkable. Adnexa: No masses. Bones: No acute bony abnormality. L5 spondylolysis, with spondylolisthesis. Soft tissues: Unremarkable. Aorta: No aneurysm or dissection. IVC: Unremarkable. Main portal vein/SMV/splenic vein: Patent. IMPRESSION: 1. Diverticulitis descending colon. No complicating features. Reviewed, dictated and finalized at location R.
[2025-01-28 12:09] LABS: Estimated Glomerular Filt Rate > 60
== END 2025-01-28 11:37 | disposition home or self-care (01) ==
LOC: MICIMG 11:38
PROVIDERS: PCP Physician Assistant Medical; Visit Provider Nurse Practitioner Adult Health
DX: K57.32 Diverticulitis of large intestine without perforation or abscess without bleeding (principal)
CPT/HCPCS: 74177; Q9967